=== PATIENT | female | born 1985 | race Caucasian/White ===

== ENCOUNTER 2021-02-01 15:56 | Emergency (ER) | payer MEDICAID, SELFPAY ==
--- NOTE | ~2021-02-01 | CT_ITS ---
EXAMINATION: CT ABDOMEN AND PELVIS WITHOUT CONTRAST CLINICAL INFORMATION: Left flank pain. History of stones. COMPARISON: None TECHNIQUE: Multidetector volumetric imaging was performed from the superior aspect of the liver through the pubic symphysis. Sagittal and coronal reformatted images were obtained on the technologist's workstation. This CT examination was performed using dose optimization techniques as appropriate, variously including the following: *Automated exposure control *Adjustment of mA and/or kV according to patient size (this includes techniques or standardized protocols for targeted exams where dose is matched to indication/reason for exam; i.e. extremities or head) *Use of iterative reconstruction technique DLP: 701 mGy-cm FINDINGS: LUNG BASES: The visualized lung bases are unremarkable. LIVER, GALLBLADDER, AND BILIARY TREE: Diffuse low attenuation of liver parenchyma due to fatty change. No focal liver lesion or intrahepatic bile duct dilatation. The gallbladder is unremarkable with no evidence of radiopaque gallstones, gallbladder wall thickening, or obvious pericholecystic inflammatory changes. PANCREAS: Unremarkable. SPLEEN: Unremarkable. ADRENAL GLANDS: Unremarkable. KIDNEYS AND URETERS: Right kidney: There are multiple small nonobstructive stones measuring from 2 mm to largest stone measuring 5 mm scattered in the right kidney. Approximately 10 stones are present in the right kidney. There is no hydronephrosis. There is no ureteral calculi. Left kidney: There are multiple stones in the kidney. There are at least 12 stones in the kidney. Stones range in size from 1 mm to largest stone layering dependently within a dilated renal pelvis measuring 6 mm. The calyces are also mildly dilated and the proximal left ureter just distal to the ureteropelvic junction. The remainder the ureter though is of normal caliber. No stone present in the ureter. There is no edema around either kidney. The kidneys are of normal size and contour and cortical thickness. BLADDER: Unremarkable. GASTROINTESTINAL TRACT: No acute abnormality. There is no bowel wall thickening /edema. There is no bowel obstruction. There is a moderate volume of stool in the colon. The appendix is normal . There are 2 calcified phleboliths within the lumen of the appendix. The small bowel loops are unremarkable. The stomach is normal. There is no hiatal hernia. ABDOMINAL WALL: Small fat-containing umbilical hernia. LYMPH NODES: Normal. VASCULAR: Unremarkable. PELVIC VISCERA: Unremarkable. OSSEOUS STRUCTURES: Unremarkable. CT/CT abdomen pelvis wo con IMPRESSION: 1. Multiple bilateral renal calculi. 2. Moderate hydronephrosis of left kidney to the ureteropelvic junction. No stone in the ureter.
[2021-02-01 17:27] VITALS: BP 143/92; PULSE 78; RESP 18; TEMP 36.6; O2SAT 99; BMI 31.8
--- NOTE | 2021-02-01 17:28 | ED_ITS ---
HPI - Abdominal Pain General Chief Complaint: Urogenital-Female <JUHI Mccoy - Last Filed: 02/02/21 15:29> Stated Complaint: kidney stones <JUHI Mccoy - Last Filed: 02/02/21 15:29> Time Seen by Provider: 02/01/21 17:26 <JUHI Mccoy - Last Filed: 02/02/21 15:29> Source: patient <Nicole Pritchett MD - Last Filed: 02/01/21 23:57> Mode of arrival: ambulatory <Nicole Pritchett MD - Last Filed: 02/01/21 23:57> History of Present Illness HPI narrative: 35-year-old female with history of kidney stones presents with left flank pain that started this afternoon and is associated with nausea but no vomiting or diarrhea or fever or chills and denies any urinary pain/burning/frequency. Patient describes pain as sharp. <Nicole Pritchett MD - Last Filed: 02/01/21 23:57> Related Data Allergies/Adverse Reactions: Allergies Allergy/AdvReac Type Severity Reaction Status Date / Time No Known Allergies Allergy Verified 02/01/21 17:27 <JUHI Mccoy - Last Filed: 02/02/21 15:29> Review of Systems Review of Systems Pertinent positives and negatives as stated in HPI 10 point review of systems is otherwise negative. <Nicole Pritchett MD - Last Filed: 02/01/21 23:57> Physical Exam Vital Signs: Vital Signs: Last Vital Signs Temp 97.6 F 02/01/21 20:55 Pulse 100 02/02/21 00:55 Resp 24 H 02/02/21 00:55 BP 132/71 02/02/21 00:55 Pulse Ox 93 02/02/21 00:55 Body Mass Index 31.8 <JUHI Mccoy - Last Filed: 02/02/21 15:29> Vital Signs: Last Vital Signs Temp 97.6 F 02/01/21 20:55 Pulse 100 02/02/21 00:55 Resp 24 H 02/02/21 00:55 BP 132/71 02/02/21 00:55 Pulse Ox 93 02/02/21 00:55 Body Mass Index 31.8 VITAL SIGNS: Reviewed. GENERAL: Well developed, well nourished, moderate distress. HEAD: Normocephalic/atraumatic EYES: PERRLA, EOMI LUNGS: Normal breath sounds. No adventitious sounds or accessory muscle use. SpO2<99> CARDIOVASCULAR: Regular rate and rhythm without noted murmurs ABDOMEN: Soft, non-tender, non-distended with bowel sounds, mild left-sided CVA tenderness as well as suprapubic discomfort NEUROLOGIC: Alert and oriented x 4. <Nicole Pritchett MD - Last Filed: 02/01/21 23:57> Course Course Course Narrative: patient presents to the ED for left flank pain. patient states pmh of recurrend kidney stones. Patient is A0x3. Rapid medical screening done. labs and UA ordered. Patient is not in distress. <JUHI Mccoy - Last Filed: 02/02/21 15:29> Reevaluation(s) Reevaluation #1: 35-year-old female with history and clinical presentation consistent with likely renal colic and doubt pyelonephritis, diverticulitis or ectopic. Review of all investigations demonstrates multiple bilateral renal calculi, moderate hydronephrosis of the left kidney to the ureteropelvic junction but no ureterolithiasis. There is no evidence suggest MCIHAEL and patient is tolerating oral intake. Patient states she feels much better and her nausea is controlled and she is comfortable with being discharged home with plan to follow-up with urology by calling the office in the morning. <Nicole Pritchett MD - Last Filed: 02/01/21 23:57> MDM - Abdominal Pain Lab Data Result diagrams: : 02/01/21 21:09 02/01/21 21:09 <JUHI Mccoy - Last Filed: 02/02/21 15:29> Labs: Lab Results 02/01/21 02/01/21 02/01/21 Range/Units 21:09 21:09 21:09 WBC 7.8 (4.8-10.8) X10*3/uL RBC 4.28 (4.20-5.50) X10*6/uL Hgb 12.8 (12.0-16.0) g/dl Hct 39.7 (37-47) % MCV 92.8 (80-98) fL MCH 29.9 (27.0-33.0) pg MCHC 32.2 (31.0-35.0) g/dl RDW 12.0 (11.0-16.0) % Plt Count 249 (160-400) X10*3/uL MPV 10.3 (9.4-12.3) fL Immature Gran % (Auto) 0.3 (0.0-0.4) % Neut % (Auto) 46.0 (45-73) % Lymph % (Auto) 37.0 (20-40) % [place] % (Auto) 9.4 (2-11) % Eos % (Auto) 6.8 H (0-4) % Baso % (Auto) 0.5 (0-2) % Lymph # (Auto) 2.9 (1.2-4.9) X10*3/uL [place] # (Auto) 0.7 (0.1-1.2) X10*3/uL Eos # (Auto) 0.5 H (0.0-0.4) X10*3/uL Baso # (Auto) 0.0 (0.0-0.2) X10*3/uL Abs Immat Gran (auto) 0.02 (0.00-0.03) X10*3/uL Absolute Neuts (auto) 3.6 (2.0-8.3) X10*3/uL Absolute Nucleated RBC 0.000 (0.0-0.012) X10*3/uL Nucleated RBC % (auto) 0.0 (0.0-0.2) /100WBC Sodium 143 (135-145) mmol/L Potassium 4.6 (3.3-5.1) mmol/L Chloride 102 (96-108) mmol/L Carbon Dioxide 32 H (22-29) mmol/L Anion Gap 14 (12-20) BUN 18 H (9-16) mg/dL Creatinine 0.72 (0.5-1.4) mg/dL Estim Creat Clear Calc 110.3 Estimated GFR > 60 Random Glucose 128 H (60-115) mg/dL Calcium 10.0 (8.4-10.2) mg/dL Total Bilirubin 0.4 (0.0-1.0) mg/dL AST 41 H (5-31) U/L ALT 48 H (0-31) U/L Alkaline Phosphatase 89 (39-117) U/L Total Protein 7.1 (6.5-8.0) g/dL Albumin 4.1 (3.5-5.0) g/dL Lipase 76 (8-78) U/L Beta HCG, Quant < 2 mIU/mL Urine Color YELLOW Urine Appearance CLEAR Urine pH 6.5 (5.0-8.0) Ur Specific [place] 1.015 (1.005-1.025) Urine Protein NEG (NEG-TRACE) MG/DL Urine Glucose (UA) NEG (NEG) MG/DL Urine Ketones NEG (NEG) MG/DL Urine Blood TRACE (NEG) Urine Nitrite NEG (NEG) Ur Leukocyte Esterase NEG (NEG) Urine RBC 0-2 (0) /HPF Urine WBC 1-4 (0-4) /HPF Ur Squamous Epith Cells TRACE /LPF Urine Bacteria TRACE /LPF Urine Test (NEGATIVE) 02/01/21 Range/Units 21:09 WBC (4.8-10.8) X10*3/uL RBC (4.20-5.50) X10*6/uL Hgb (12.0-16.0) g/dl Hct (37-47) % MCV (80-98) fL MCH (27.0-33.0) pg MCHC (31.0-35.0) g/dl RDW (11.0-16.0) % Plt Count (160-400) X10*3/uL MPV (9.4-12.3) fL Immature Gran % (Auto) (0.0-0.4) % Neut % (Auto) (45-73) % Lymph % (Auto) (20-40) % [place] % (Auto) (2-11) % Eos % (Auto) (0-4) % Baso % (Auto) (0-2) % Lymph # (Auto) (1.2-4.9) X10*3/uL [place] # (Auto) (0.1-1.2) X10*3/uL Eos # (Auto) (0.0-0.4) X10*3/uL Baso # (Auto) (0.0-0.2) X10*3/uL Abs Immat Gran (auto) (0.00-0.03) X10*3/uL Absolute Neuts (auto) (2.0-8.3) X10*3/uL Absolute Nucleated RBC (0.0-0.012) X10*3/uL Nucleated RBC % (auto) (0.0-0.2) /100WBC Sodium (135-145) mmol/L Potassium (3.3-5.1) mmol/L Chloride (96-108) mmol/L Carbon Dioxide (22-29) mmol/L Anion Gap (12-20) BUN (9-16) mg/dL Creatinine (0.5-1.4) mg/dL Estim Creat Clear Calc Estimated GFR Random Glucose (60-115) mg/dL Calcium (8.4-10.2) mg/dL Total Bilirubin (0.0-1.0) mg/dL AST (5-31) U/L ALT (0-31) U/L Alkaline Phosphatase (39-117) U/L Total Protein (6.5-8.0) g/dL Albumin (3.5-5.0) g/dL Lipase (8-78) U/L Beta HCG, Quant mIU/mL Urine Color Urine Appearance Urine pH (5.0-8.0) Ur Specific [place] (1.005-1.025) Urine Protein (NEG-TRACE) MG/DL Urine Glucose (UA) (NEG) MG/DL Urine Ketones (NEG) MG/DL Urine Blood (NEG) Urine Nitrite (NEG) Ur Leukocyte Esterase (NEG) Urine RBC (0) /HPF Urine WBC (0-4) /HPF Ur Squamous Epith Cells /LPF Urine Bacteria /LPF Urine Test NEGATIVE (NEGATIVE) <JUHI Mccoy - Last Filed: 02/02/21 15:29> Lab Results 02/01/21 02/01/21 02/01/21 Range/Units 21:09 21:09 21:09 WBC 7.8 (4.8-10.8) X10*3/uL RBC 4.28 (4.20-5.50) X10*6/uL Hgb 12.8 (12.0-16.0) g/dl Hct 39.7 (37-47) % MCV 92.8 (80-98) fL MCH 29.9 (27.0-33.0) pg MCHC 32.2 (31.0-35.0) g/dl RDW 12.0 (11.0-16.0) % Plt Count 249 (160-400) X10*3/uL MPV 10.3 (9.4-12.3) fL Immature Gran % (Auto) 0.3 (0.0-0.4) % Neut % (Auto) 46.0 (45-73) % Lymph % (Auto) 37.0 (20-40) % [place] % (Auto) 9.4 (2-11) % Eos % (Auto) 6.8 H (0-4) % Baso % (Auto) 0.5 (0-2) % Lymph # (Auto) 2.9 (1.2-4.9) X10*3/uL [place] # (Auto) 0.7 (0.1-1.2) X10*3/uL Eos # (Auto) 0.5 H (0.0-0.4) X10*3/uL Baso # (Auto) 0.0 (0.0-0.2) X10*3/uL Abs Immat Gran (auto) 0.02 (0.00-0.03) X10*3/uL Absolute Neuts (auto) 3.6 (2.0-8.3) X10*3/uL Absolute Nucleated RBC 0.000 (0.0-0.012) X10*3/uL Nucleated RBC % (auto) 0.0 (0.0-0.2) /100WBC Sodium 143 (135-145) mmol/L Potassium 4.6 (3.3-5.1) mmol/L Chloride 102 (96-108) mmol/L Carbon Dioxide 32 H (22-29) mmol/L Anion Gap 14 (12-20) BUN 18 H (9-16) mg/dL Creatinine 0.72 (0.5-1.4) mg/dL Estim Creat Clear Calc 110.3 Estimated GFR > 60 Random Glucose 128 H (60-115) mg/dL Calcium 10.0 (8.4-10.2) mg/dL Total Bilirubin 0.4 (0.0-1.0) mg/dL AST 41 H (5-31) U/L ALT 48 H (0-31) U/L Alkaline Phosphatase 89 (39-117) U/L Total Protein 7.1 (6.5-8.0) g/dL Albumin 4.1 (3.5-5.0) g/dL Lipase 76 (8-78) U/L Beta HCG, Quant < 2 mIU/mL Urine Color YELLOW Urine Appearance CLEAR Urine pH 6.5 (5.0-8.0) Ur Specific [place] 1.015 (1.005-1.025) Urine Protein NEG (NEG-TRACE) MG/DL Urine Glucose (UA) NEG (NEG) MG/DL Urine Ketones NEG (NEG) MG/DL Urine Blood TRACE (NEG) Urine Nitrite NEG (NEG) Ur Leukocyte Esterase NEG (NEG) Urine RBC 0-2 (0) /HPF Urine WBC 1-4 (0-4) /HPF Ur Squamous Epith Cells TRACE /LPF Urine Bacteria TRACE /LPF Urine Test (NEGATIVE) 02/01/21 Range/Units 21:09 WBC (4.8-10.8) X10*3/uL RBC (4.20-5.50) X10*6/uL Hgb (12.0-16.0) g/dl Hct (37-47) % MCV (80-98) fL MCH (27.0-33.0) pg MCHC (31.0-35.0) g/dl RDW (11.0-16.0) % Plt Count (160-400) X10*3/uL MPV (9.4-12.3) fL Immature Gran % (Auto) (0.0-0.4) % Neut % (Auto) (45-73) % Lymph % (Auto) (20-40) % [place] % (Auto) (2-11) % Eos % (Auto) (0-4) % Baso % (Auto) (0-2) % Lymph # (Auto) (1.2-4.9) X10*3/uL [place] # (Auto) (0.1-1.2) X10*3/uL Eos # (Auto) (0.0-0.4) X10*3/uL Baso # (Auto) (0.0-0.2) X10*3/uL Abs Immat Gran (auto) (0.00-0.03) X10*3/uL Absolute Neuts (auto) (2.0-8.3) X10*3/uL Absolute Nucleated RBC (0.0-0.012) X10*3/uL Nucleated RBC % (auto) (0.0-0.2) /100WBC Sodium (135-145) mmol/L Potassium (3.3-5.1) mmol/L Chloride (96-108) mmol/L Carbon Dioxide (22-29) mmol/L Anion Gap (12-20) BUN (9-16) mg/dL Creatinine (0.5-1.4) mg/dL Estim Creat Clear Calc Estimated GFR Random Glucose (60-115) mg/dL Calcium (8.4-10.2) mg/dL Total Bilirubin (0.0-1.0) mg/dL AST (5-31) U/L ALT (0-31) U/L Alkaline Phosphatase (39-117) U/L Total Protein (6.5-8.0) g/dL Albumin (3.5-5.0) g/dL Lipase (8-78) U/L Beta HCG, Quant mIU/mL Urine Color Urine Appearance Urine pH (5.0-8.0) Ur Specific [place] (1.005-1.025) Urine Protein (NEG-TRACE) MG/DL Urine Glucose (UA) (NEG) MG/DL Urine Ketones (NEG) MG/DL Urine Blood (NEG) Urine Nitrite (NEG) Ur Leukocyte Esterase (NEG) Urine RBC (0) /HPF Urine WBC (0-4) /HPF Ur Squamous Epith Cells /LPF Urine Bacteria /LPF Urine Test NEGATIVE (NEGATIVE) <Nicole Pritchett MD - Last Filed: 02/01/21 23:57> Discharge Plan Discharge Clinical Impression: Hydronephrosis, Bilateral renal stones <JUHI Mccoy - Last Filed: 02/02/21 15:29> Patient Disposition: Home, Self-Care <JUHI Mccoy - Last Filed: 02/02/21 15:29> Instructions: Kidney Stones (ED), Hydronephrosis (ED) <JUHI Mccoy - Last Filed: 02/02/21 15:29> Additional Instructions: 1. Increase fluid hydration especially with water and minimize carbonated/caffeinated beverages. 2. Tylenol 1000 mg, orally, every 6 hours as needed for pain control. Do not exceed 4000 mg within 24 hours. 3. Ibuprofen 400 mg, orally with milk or food, every 6 hours as needed for pain control. You may take this with Tylenol for increased symptom relief. 4. Please call the urology office, the referral was provided you below. Call in the morning. Return to the ER for acute worsening of symptoms. <JUHI Mccoy - Last Filed: 02/02/21 15:29> Referrals: Alpesh Welch MD [Physician] - 2 days (Patient with left hydronephrosis looks to be a 1 cm pelvic stone but no ureterolithiasis, history of kidney stones/renal colic. New to the area.) <JUHI Mccoy - Last Filed: 02/02/21 15:29> Interventions: ED Discharge Assessment Last Done: 02/02/21 00:56 <JUHI Mccoy - Last Filed: 02/02/21 15:29> Discharge Date/Time: 02/02/21 00:58 <JUHI Mccoy - Last Filed: 02/02/21 15:29> [facility] Past Medical History Source: nursing notes reviewed <Nicole Pritchett MD - Last Filed: 02/01/21 23:57> Medical History: Medical History ADHD Asthma Gastritis GERD (gastroesophageal reflux disease) Kidney stones PTSD (post-traumatic stress disorder) <JUHI Mccoy - Last Filed: 02/02/21 15:29> Social History Social History: Social History Advance Directives: No Advance Directives Information Provided: No Patient : No <JUHI Mccoy - Last Filed: 02/02/21 15:29>
[2021-02-01 20:55] VITALS: BP 124/88; PULSE 73; RESP 16; TEMP 36.4; O2SAT 99
[2021-02-01 21:13] LABS: MANUAL DIFF FLAG NO
[2021-02-01 21:15] LABS: Basophils Percent Auto 0.5 % (0-2); Eosinophils Absolute Auto 0.5 X10*3/uL (0.0-0.4); Eosinophils Percent Auto 6.8 % (0-4); Hematocrit 39.7 % (37-47); Hemoglobin 12.8 g/dl (12.0-16.0); Imm Gran Abs Auto 0.02 X10*3/uL (0.00-0.03); Imm Gran Pct Auto 0.3 % (0.0-0.4); Lymphocytes Absolute Auto 2.9 X10*3/uL (1.2-4.9); Mean Corpuscular HGB Conc 32.2 g/dl (31.0-35.0); Mean Corpuscular Hemoglobin 29.9 pg (27.0-33.0); Mean Corpuscular Volume 92.8 fL (80-98); Mean Platelet Volume 10.3 fL (9.4-12.3); Monocytes Absolute Auto 0.7 X10*3/uL (0.1-1.2); Monocytes Percent Auto 9.4 % (2-11); Neutrophils Absolute Auto 3.6 X10*3/uL (2.0-8.3); Platelet Count 249 X10*3/uL (160-400); Red Blood Count 4.28 X10*6/uL (4.20-5.50); White Blood Count 7.8 X10*3/uL (4.8-10.8)
[2021-02-01 21:24] LABS: UPreg QC Valid YES; Urine Pregnancy NEGATIVE (NEGATIVE)
[2021-02-01 21:25] LABS: Appearance Urine CLEAR; Color Urine YELLOW; Glucose Urine UA NEG (NEG); Leukocyte Esterase Urine NEG (NEG); Nitrite Urine NEG (NEG); PH 6.5 (5.0-8.0); Specific Gravity - Urine 1.015 (1.005-1.025); UACC Culture Trigger NO; Urine Blood TRACE (NEG); Urine Ketones NEG (NEG); Urine Protein NEG (NEG-TRACE)
[2021-02-01 21:33] LABS: Bacteria Urine TRACE /LPF; RBC Urine 0-2 /HPF (0); Squamous Epithelial Cell Urine TRACE /LPF
[2021-02-01 21:35] LABS: Alanine Aminotransferase 48 U/L (0-31); Albumin Level 4.1 g/dL (3.5-5.0); Alkaline Phosphatase 89 U/L (39-117); Anion Gap 14 (12-20); Aspartate Amino Transferase 41 U/L (5-31); Bilirubin Total 0.4 mg/dL (0.0-1.0); Blood Urea Nitrogen 18 mg/dL (9-16); Carbon Dioxide 32 mmol/L (22-29); Chloride 102 mmol/L (96-108); Creatinine Clr Calc Pharmacy 110.3; Estimated Glomerular Filt Rate > 60; Glucose Random 128 mg/dL (60-115); Lipase 76 U/L (8-78); Potassium 4.6 mmol/L (3.3-5.1); Sodium 143 mmol/L (135-145); Total Protein 7.1 g/dL (6.5-8.0)
[2021-02-01 21:37] LABS: HCG Quantitative < 2 mIU/mL
--- NOTE | 2021-02-01 21:54 | PC.NURSE ---
PT AMBULATES TO CT.
--- NOTE | 2021-02-01 22:22 | PC.NURSE ---
PT IS A DIFFICULT STICK AND UNABLE TO PLACE IV AT THIS TIME.
[2021-02-01] MEDS: Ondansetron ODT 4 MG TAB.RAPDIS TRANSLINGU (22:50)
[2021-02-01] MEDS: Ketorolac Tromethamine 15 MG/ML VIAL IVPUSH (22:50)
--- NOTE | 2021-02-01 22:58 | PC.NURSE ---
AWARE UNABLE TO GET IV ON PT. ZOFRAN GIVEN PO AND TORADOL IM PER DR MIK SRIVASTAVA.
[2021-02-02] MEDS: Ibuprofen 400 MG TABLET PO (00:27)
[2021-02-02] MEDS: Acetaminophen 325 MG TABLET 975 MG PO (00:28)
[2021-02-02] MEDS: Tamsulosin HCL 0.4 MG CAPSULE PO (00:29)
[2021-02-02 00:55] VITALS: BP 132/71; PULSE 100; RESP 24; O2SAT 93
== END 2021-02-02 00:58 | disposition home or self-care (01) ==
PROVIDERS: Physician Assistant; Emergency Provider Student in an Organized Health Care Education/Training Program
DX: N13.2 Hydronephrosis with renal and ureteral calculous obstruction (principal); Z79.899 Other long term (current) drug therapy
CPT/HCPCS: 36415; 74176; 80053; 81001; 81025; 83690; 84702; 85025; 96361; 96374; 96375; 99284; J1885

== ENCOUNTER 2021-02-23 10:30 | Outpatient (REF) | payer MEDICAID, SELFPAY ==
[2021-02-23 14:44] LABS: Anion Gap 13 (12-20); Blood Urea Nitrogen 17 mg/dL (9-16); Calcium 9.5 mg/dL (8.4-10.2); Carbon Dioxide 29 mmol/L (22-29); Chloride 103 mmol/L (96-108); Estimated Glomerular Filt Rate > 60; Glucose Random 114 mg/dL (60-115); Potassium 4.8 mmol/L (3.3-5.1); Sodium 140 mmol/L (135-145)
== END 2021-02-23 10:31 | disposition home or self-care (01) ==
LOC: HO.LAB 10:30
PROVIDERS: Absent Provider Urology; PCP Family Medicine; Visit Provider Family Medicine
DX: N20.0 Calculus of kidney (principal)
CPT/HCPCS: 36415; 80048; 83735

== ENCOUNTER 2021-03-01 12:14 | Day surgery (SDC) | payer MEDICAID, SELFPAY ==
--- NOTE | 2021-02-26 10:25 | HO.ANESPROP2 ---
Documented by User: Netta Darby NP 02/26/21 10:30 HPI - Anesthesia Eval Consult details Narrative: 35yo F for Left Cystoscopy, Ureteroroscopy, Retro, Laser,poss stent Subutex 8mg daily PMFSH Active Problems Active Problems: All Active Problems (Updated 02/23/21 @ 11:49 by Alpesh Welch MD) Kidney stones (Acute) Past Medical History Medical History ADHD Asthma Gastritis GERD (gastroesophageal reflux disease) Kidney stones PTSD (post-traumatic stress disorder) Social History Social History Patient Tobacco Use Status: Current everyday Tobacco user Tobacco use type: Cigarette Use of substances other than those prescribed or required for medical reasons: No Are you DNR?: No Advance Directives: No Advance Directives Information Provided: Yes Advance Directives on File: No Meds Allergies Allergy/AdvReac Type Severity Reaction Status Date / Time No Known Allergies Allergy Verified 02/23/21 10:33 Home Medications Medication Instructions Recorded Confirmed Last Taken Type buprenorphine HCl 8 mg sublingual mg SUBLINGUAL 02/23/21 Unknown History tablet clonidine HCl 0.1 mg tablet 0.1 mg PO TID 02/23/21 Unknown History dextroamphetamine-amphetamine 20 1 tab PO BID 02/23/21 Unknown History mg tablet docusate sodium 100 mg capsule 100 mg PO BID 02/23/21 Unknown History ergocalciferol (vitamin D2) 1,250 0 mcg PO 02/23/21 Unknown History mcg (50,000 unit) capsule famotidine 20 mg tablet 20 mg PO BID 02/23/21 Unknown History fluoxetine 20 mg capsule 20 mg PO DAILY 02/23/21 Unknown History fluticasone propionate 220 0 mcg INHALATION 02/23/21 Unknown History mcg/actuation HFA aerosol inhaler (Flovent HFA) gabapentin 300 mg capsule 0 mg PO 02/23/21 Unknown History ibuprofen 800 mg tablet 800 mg PO TID 02/23/21 Unknown History levothyroxine 75 mcg tablet 75 mcg PO DAILY 02/23/21 Unknown History lithium carbonate 300 mg capsule 300 mg PO BID 02/23/21 Unknown History magnesium oxide 400 mg (241.3 mg 400 mg PO DAILY 02/23/21 Unknown History magnesium) tablet olanzapine 5 mg tablet 5 mg PO BEDTIME 02/23/21 Unknown History potassium chloride 10 mEq 10 meq PO DAILY 02/23/21 Unknown History capsule,extended release sennosides 8.6 mg tablet (senna) 17.2 mg PO DAILY 02/23/21 Unknown History tamsulosin 0.4 mg capsule 0.4 mg PO DAILY 02/23/21 Unknown History triamterene 37.5 1 tab PO DAILY 02/23/21 Unknown History mg-hydrochlorothiazide 25 mg tablet Exam Exam Date and Time: February 26, 2021 1025 Pertinent Lab Results Pertinent Lab Results: Laboratory Tests 02/01/21 02/23/21 21:09 14:07 WBC 7.8 Hgb 12.8 Hct 39.7 Plt Count 249 Sodium 140 Potassium 4.8 Chloride 103 Carbon Dioxide 29 BUN 17 H Creatinine 0.77 Assessment and Plan Assessment Anesthesia Assessment: Chart Reviewed Documented by User: Nicole Andrade MD 03/01/21 14:06 [facility] Past Medical History Medical History ADHD Asthma Gastritis GERD (gastroesophageal reflux disease) Kidney stones PTSD (post-traumatic stress disorder) Functional capacity: wheelchair bound Surgical History History of Problems with Anesthesia: No Social History Social History Patient Tobacco Use Status: Current everyday Tobacco user Tobacco use type: Cigarette Use of substances other than those prescribed or required for medical reasons: No Are you DNR?: No Advance Directives: No Advance Directives Information Provided: Yes Advance Directives on File: No Meds Allergies Allergy/AdvReac Type Severity Reaction Status Date / Time No Known Allergies Allergy Verified 02/23/21 10:33 Home Medications Medication Instructions Recorded Confirmed Last Taken Type buprenorphine HCl 8 mg sublingual mg SUBLINGUAL 02/23/21 Unknown History tablet clonidine HCl 0.1 mg tablet 0.1 mg PO TID 02/23/21 Unknown History dextroamphetamine-amphetamine 20 1 tab PO BID 02/23/21 Unknown History mg tablet docusate sodium 100 mg capsule 100 mg PO BID 02/23/21 Unknown History ergocalciferol (vitamin D2) 1,250 0 mcg PO 02/23/21 Unknown History mcg (50,000 unit) capsule famotidine 20 mg tablet 20 mg PO BID 02/23/21 Unknown History fluoxetine 20 mg capsule 20 mg PO DAILY 02/23/21 Unknown History fluticasone propionate 220 0 mcg INHALATION 02/23/21 Unknown History mcg/actuation HFA aerosol inhaler (Flovent HFA) gabapentin 300 mg capsule 0 mg PO 02/23/21 Unknown History ibuprofen 800 mg tablet 800 mg PO TID 02/23/21 Unknown History levothyroxine 75 mcg tablet 75 mcg PO DAILY 02/23/21 Unknown History lithium carbonate 300 mg capsule 300 mg PO BID 02/23/21 Unknown History magnesium oxide 400 mg (241.3 mg 400 mg PO DAILY 02/23/21 Unknown History magnesium) tablet olanzapine 5 mg tablet 5 mg PO BEDTIME 02/23/21 Unknown History potassium chloride 10 mEq 10 meq PO DAILY 02/23/21 Unknown History capsule,extended release sennosides 8.6 mg tablet (senna) 17.2 mg PO DAILY 02/23/21 Unknown History tamsulosin 0.4 mg capsule 0.4 mg PO DAILY 02/23/21 Unknown History triamterene 37.5 1 tab PO DAILY 02/23/21 Unknown History mg-hydrochlorothiazide 25 mg tablet Exam Airway Mallampati Class: II TM Dist: >3cm Neck ROM: Full Loose/Missing/Broken Teeth: No Heart: RRR Lungs: CTA Assessment and Plan Assessment Anesthesia Assessment: Anesthesia Plan Discussed Final Anesthetic Review History of Problems with Anesthesia: No NPO: Yes ASA Class: II Final Preanesthetic Review: Meds/Allgs Chart Reviewed, Consent Obtained/Reviewed and Anes Risks/Benef Reviewed Patient Risk: Low Procedure Risk: Low Anesthetic Plan Anesthetic Plan: GA Disposition: Standard PACU
[2021-03-01] VITALS (22 sets, daily range): BP systolic 124–155; BP diastolic 64–97; PULSE 59–87; RESP 14–20; TEMP 35.7–36.4; O2SAT 94–100; BMI 31.8
--- NOTE | ~2021-03-01 | FL_ITS ---
EXAMINATION: XR FLUOROSCOPY WITH IMAGES CLINICAL INFORMATION: Urinary calculus. COMPARISON: CT scan of 02/01/2021. TECHNIQUE: Fluoroscopy performed by Dr. Alpesh Welch Fluoroscopy time: 56.5 seconds DLP: 26.54 mGy-cm Images: 2 FINDINGS: Two C-arm images demonstrate a left ureteral stent with pigtail formed approximately in the expected location of the left upper collecting system and distal and of the catheter lying just inferior to contrast within urinary bladder. FL/FL guidance in OR IMPRESSION: Fluoroscopy for placement of left ureteral catheter.
[2021-03-01] MEDS: levoFLOXacin 500 MG TABLET PO (12:46)
[2021-03-01 12:47] LABS: UPreg QC Valid YES; Urine Pregnancy NEGATIVE (NEGATIVE)
[2021-03-01] MEDS: Lactated Ringers 1,000 ML 100 ML IVCONT (12:47)
--- NOTE | 2021-03-01 14:10 | MHC.SHP ---
Pre-Procedural Eval Section A Date of Service: 03/01/21 Section B Chief Complaint: calculus of kidney Details of Present Illness: Presentation to ER with left flank pain. Imaging with stones on left kidney Relevant Family History (Specify if Yes): No Relevant Social History: None Present Medications: see Short Stay Collaborative assessment Medical History: Significant History History of Previous Operations: Relevant previous surgery/procedure and date(s) Allergies: Allergies Allergy/AdvReac Type Severity Reaction Status Date / Time No Known Allergies Allergy Verified 02/23/21 10:33 Review of Systems Sugical H&P ROS: Negative: Constitution, Cardiovascular, Respiratory, Neurological, Psychiatric, Hem-Onc, Allergic/Immunologic, Gastrointestinal, Genitourinary, Musculoskeletal, Integumentary, Endocrine and Eyes/Ears/Nose/Throat Exam Surgical H&P Exam: Normal: HEENT, Normal: Heart, Normal: Lungs, Normal: Extremities, Normal: Abdomen, Normal: Skin and Normal: Neurological Plan Diagnosis/Plan: Unchanged (Cystoscopy, left retrograde, left ureteroscopy laser lithotripsy stent placement) I have reviewed the history and physical and performed a pertinent physical examination on my patient. No changes have occurred unless specified.
--- NOTE | 2021-03-01 15:22 | W.PM.OPN ---
Operative Note Operative Note Date of Service: 03/01/21 Narrative: PreOperative Diagnosis: Left renal stones Post Operative Diagnosis: Left renal stones Procedure: - cystoscopy, left retrograde - left dilatation of ureteric orifice under fluoroscopy - left ureteroscopy, laser lithotripsy, stone basketing - left stent placement Surgeon: Dr Alpesh Welch Anesthesia: General Indications for procedure: This is a 35-year-old female. Known stone former. Seen in emergency room with left-sided flank pain. Multiple stones seen on CT scan. Previous ESWL. Recommendation for ureteroscopy, laser lithotripsy, stent placement. We could treat more the areas in a single setting Procedure: After informed consent was verified patient was brought to the operating placed in supine position. Anesthesia was administered per protocol. Patient was placed in modified dorsal lithotomy position and prepped and draped in a sterile fashion. Safety pause time-out and side of surgery confirmed. Antibiotics confirmed. Twenty-two [place] cystoscope placed per urethra. Noted to have some degree of cystocele. Left ureteric orifices normal position. Cannulated with Sensor guidewire. Advanced ureteric catheter. Retrograde examination performed. Small filling defects seen within the renal pelvis. Sensor guidewire placed to the level renal pelvis. Cystoscope removed. Ureteric access sheath placed. Internal cannula used to dilate ureter under fluoroscopy. Cannula placed. Sensor guidewire removed. Flexible digital ureteral scope placed. Renal pelvis examined is entirety. There were multiple examples of submucosal stones. Using the 272 micron laser fiber these areas were lasered. There were multiple areas in the upper calices, middle calices. Areas seen in the lower calices. Two small stones seen. These were broken using the laser. Hard stones consistent with calcium oxalate monohydrate. Attempt was made at basketing. However we were not able to obtain fragments that sat within the basket. After multiple areas had been examined decision was made to place a Sensor wire. A 6 [place] by 24 cm double-J stent was placed without difficulty. She tolerated the procedure well was extubated in operating room transferred in stable condition to the recovery area. Pathology: Drains: 6 [place] by 24 cm stent
[2021-03-01] MEDS: fentaNYL citrate/PF 100 MCG/2 ML VIAL 50 MCG IVPUSH ×4 (15:40→16:00)
[2021-03-01] MEDS: ondansetron HCL 4 MG/2 ML VIAL IVPUSH (15:42)
[2021-03-01] MEDS: oxyCODONE HCl Immed Release 5 MG TABLET 10 MG PO (15:51)
[2021-03-01] MEDS: Phenazopyridine HCL 100 MG TABLET PO (15:53)
[2021-03-01] MEDS: Acetaminophen 325 MG TABLET 650 MG PO (15:54)
[2021-03-01] MEDS: Ketorolac Tromethamine 15 MG/ML VIAL IVPUSH (17:49)
[2021-03-01] MEDS: fentaNYL citrate/PF 100 MCG/2 ML VIAL 25 MCG IVPUSH ×4 (18:05→18:26)
--- NOTE | 2021-03-01 18:59 | PC.NURSE ---
1700 patient insisting need to void. ambulated to the bathroom steady gait to void. unable to void. VERY emotional crying agitated, I have to pee. educated post procedure may have urge to void related to irritation. allowed patient approximately 10 min trial to void unable. returned patient to bed bladder scanned for [address] monroe at bedside made aware patient crying reporting significant left sided pain unable to void. to place orders for oxybutynin. dr. stevens called to bedside updated patient medications
--- NOTE | 2021-03-01 19:03 | PC.NURSE ---
1719 dr[address] and dr. gannon at bedside aware of medications received 200 mcg fentanyl and 10 mg oxycodone, pyridium still complaining of pain. noted signfificant psych hx as well concern additional narcotics.
--- NOTE | 2021-03-01 19:06 | PC.NURSE ---
1849 dr. monroe updated patient remains in pacu. complaints ongoing left sided pain despite multiple efforts to control. patient adamant that would like to have stent removed immediately. patient not cooperative, argumentative with rn indicated she will remove the stent herself as has had in the past. per m.d. may admit to inpatient if appropriate.
--- NOTE | 2021-03-01 19:35 | PC.NURSE ---
patient sitting in stretcher, eating snacks taking po fluids watching her cellphone playing games. calm. patient educated on the purpose of stent and risk of removing. patient reports pain tolerable and preference to go home. pain 5-6/10. no facial grimacing noted.
== END 2021-03-01 19:45 | disposition home or self-care (01) ==
PROVIDERS: Nurse Practitioner; PCP Family Medicine; Visit Provider Urology
PROC: (CPT 52356; principal; 2021-03-01 13:50)
DX: N20.0 Calculus of kidney (principal); Z87.442 Personal history of urinary calculi; N81.10 Cystocele, unspecified; J45.909 Unspecified asthma, uncomplicated; F43.10 Post-traumatic stress disorder, unspecified; F90.9 Attention-deficit hyperactivity disorder, unspecified type; F17.210 Nicotine dependence, cigarettes, uncomplicated
CPT/HCPCS: 52356; 52352; 81025; C1758; C1769; C2617; J1100; J1885; J2250; J2405; J3010; Q9967

== ENCOUNTER → 2021-03-11 10:58 | Outpatient (BNVA) | payer MEDICAID, SELFPAY | PROVIDERS: PCP Family Medicine; Visit Provider Urology | DX: N20.0 Calculus of kidney (principal) | CPT/HCPCS: 52310 ==

== ENCOUNTER 2021-04-08 13:57 | Outpatient (REF) | payer MEDICAID, SELFPAY ==
--- NOTE | ~2021-04-08 | US_ITS ---
EXAMINATION: US RETROPERITONEAL LIMITED (RENAL ONLY) CLINICAL INFORMATION: Calculus of kidney. COMPARISON: CT abdomen and pelvis 02/01/2021. TECHNIQUE: Real-time imaging of the kidneys. FINDINGS: RIGHT KIDNEY: 14.1 x 6.7 x 3.4 cm (SAG x AP x TRV). The kidney is normal in size, contour, and echogenicity. There is mild cortical thinning with echogenic pyramids. No focal parenchymal lesions or hydronephrosis. There multiple echogenic stone lower pole with the largest stone lower pole measuring 0.5 x 0.3 cm. LEFT KIDNEY: 11.6 x 5.3 x 4.7 cm (SAG x AP x TRV). The kidney is normal in size, contour, and echogenicity. No calculi or focal parenchymal lesions. No hydronephrosis. There is mild cortical thinning with echogenic pyramids. There is mild fullness of the left renal pelvis. US/US renal BI IMPRESSION: Multiple small echogenic stones lower pole right kidney with the largest nonobstructive echogenic stone measuring 0.5 cm. Bilateral cortical thinning of the kidneys. Mild fullness left kidney.
== END 2021-04-08 13:58 | disposition home or self-care (01) ==
LOC: HO.US 13:57
PROVIDERS: PCP Family Medicine; Visit Provider Urology
DX: N20.0 Calculus of kidney (principal)
CPT/HCPCS: 76775

== ENCOUNTER → 2021-05-19 11:33 | Outpatient (BNVA) | payer MEDICAID, SELFPAY | PROVIDERS: PCP Family Medicine; Visit Provider Urology ==